=== PATIENT | female | born 1990 | race Hispanic/Latino ===

== ENCOUNTER 2016-11-28 09:21 | Outpatient (CLI) | payer MEDICAID ==
--- NOTE | 2016-11-28 10:44 | Ultrasound Report ---
Pelvic and transvaginal sonography: History: Vaginal bleeding. Pelvic pain. Findings: Uterus measures 10.8 x 5.3 x 7 cm. Single intrauterine gestational sac is identified. The sac diameter is 16.5 mm corresponding to 6 weeks and 4 days of gestation. No yolk sac or pole is identified within the sac. Small subchorionic bleed is noted. Right ovary 3.7 x 2.3 x 4.1 cm. No mass. Left ovary 2.4 x 2.3 x 2.3 cm. No mass. Impression: Single intrauterine gestational sac. No yolk sac or pole within the sac. Sub-chorionic bleed measuring 2 x 0.6 x 1.0 cm.
== END 2016-11-28 09:22 | disposition home or self-care (01) ==
LOC: US 09:21
PROVIDERS: ATTEND Internal Medicine
DX: O46.91 Antepartum hemorrhage, unspecified, first trimester (principal); Z3A.01 Less than 8 weeks gestation of pregnancy
CPT/HCPCS: 76801; 76817